=== PATIENT | female | born 1985 | race Caucasian/White ===

== ENCOUNTER 2018-01-07 18:04 | Observation (INO) ==
[2018-01-07 19:07] LABS: Bilirubin,Urine Negative (Negative); Blood,Urine Trace-intact (Negative); Clarity,Urine Clear (Clear); Color,Urine Yellow (Yellow); Glucose,Urine (UA) Normal (Normal); Ketones,Urine Negative (Negative); Leukocyte Esterase,Urine Negative (Negative); Nitrite,Urine Negative (Negative); PH,Urine 5.5 pH Units (5.0-8.0); Protein,Urine Negative (Neg-Trace); Specific Gravity,Urine 1.015 (1.010-1.025); Urobilinogen,Urine Normal (Normal)
[2018-01-07 19:14] LABS: Bacteria,Urine Few per hpf (None-Few); RBC,Urine 0-3 per hpf (0-3); Squamous Epithelial Cell,Urine Few per lpf (None-Few); WBC,Urine 0-3 per hpf (0-3)
[2018-01-07 19:30] LABS: Basophils % 0.4 %; Eosinophils # 0.2 K/mcL (0.0-0.6); Eosinophils % 2.1 %; Hematocrit 36.4 % (35.3-44.9); Hemoglobin 12.4 g/dL (11.5-15.4); Immature Granulocytes % 0.8 % (0-4); Lymphocytes # 2.3 K/mcL (0.6-4.6); Lymphocytes % 30.8 %; Mean Corpuscular HGB Conc 34.1 g/dL (31.6-35.5); Mean Corpuscular Hemoglobin 32.3 pg (28.0-33.3); Mean Corpuscular Volume 94.8 fL (83.0-100.0); Mean Platelet Volume 9.6 fL (9.4-12.4); Monocytes % 12.5 %; Neutrophils # 4.1 K/mcL (1.6-8.9); Platelet Count 306 K/mcL (140-400); Red Blood Count 3.84 M/mcL (3.82-4.97); Red Cell Distribution Width 13.4 % (11.5-14.5); Segmented Neutrophils % 53.4 %
[2018-01-07 19:37] LABS: Prothrombin Time 11.5 Seconds (9.4-12.1)
[2018-01-07 19:40] LABS: Activated Partial Thrombo Time 38.3 Seconds (26.0-36.0)
[2018-01-07] MEDS ORDERED: Albuterol 2.5 MG/3 ML NEBULIZER IH ONE (19:44)
[2018-01-07 19:45] LABS: Alanine Aminotransferase 27 Units/L (7-52); Albumin 3.9 g/dL (3.5-5.7); Albumin/Globulin Ratio 1.4 (1.1-2.2); Alkaline Phosphatase 47 Units/L (34-104); Aspartate Amino Transferase 22 Units/L (13-39); BUN/Creatinine Ratio 21 (6-26); Bilirubin,Total 0.4 mg/dL (0.3-1.0); Blood Urea Nitrogen 12 mg/dL (6-20); Calcium 9.3 mg/dL (8.6-10.3); Carbon Dioxide 29 mEq/L (23-29); Chloride 102 mEq/L (98-107); Globulin 2.7 g/dL (2.4-3.5); Glucose 98 mg/dL (70-105); Osmolality,Calculated 284 (280-300); Potassium 3.9 mEq/L (3.5-5.1); Sodium 137 mEq/L (136-145); Total Protein 6.6 g/dL (6.4-8.9); eGFR For Non-African Americans > 60 (> 60)
[2018-01-07 19:54] LABS: Troponin I < 0.03 ng/mL (< 0.04)
--- NOTE | 2018-01-07 20:40 | Emergency Department Note ---
Disposition Clinical Impression: Abdominal distension Syncope Qualifiers: Encounter type: initial encounter Disposition: Admitted As Inpatient Condition: Good Referrals: NONE,PCP [Primary Care Provider] - Time of Disposition: 20:00 Syncope HPI - General Chief Complaint: ED General Medical Stated Complaint: possible syncope, weight gain, dizziness Source: patient Mode of arrival: ambulatory Limitations: no limitations Nursing Notes Reviewed: Yes Vital Signs Reviewed: Yes - History of Present Illness HPI Narrative: Patient is a pleasant 32 yo F with past medical history significant for Alcohol abuse, Hep C, 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 She states she felt some palpitations. She wasa told that she has cardiography due to log standing alcoholism. She also c/o abd distension and LE edema. Patient denies any fever, chills or night sweats. Pt also denies any eye pain or visual disturbances. There is no sore throat, nasal drainages or facial congestion. There is no chest pain. Pt also denies any shortness of breath, cough or chest congestion. There is no abdominal pain, nausea, vomiting or diarrhea. There is no urgency, frequency or dysuria. There is no muskulo-skeletal pain, arthralgia or back pain. Patient also denies any rash, edema or pruritus. There is no neurological manifestations, no headache, no vertigo or weakness. The patient also denies any anxiety, depression, hallucinations and has no homicidal or suicidal ideations. There is no polyuria, polydipsia or recent weight change. There is no easy bruising or bleeding. Review of other systems is otherwise negative except above. 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(s) Prodromal Symptoms: none Witnessed: no Context: standing up Injuries Sustained Associated with Event: none - Related Data Home Medications Medication Instructions Recorded Confirmed Gabapentin [Neurontin] 600 mg PO TID 07/04/17 12/05/17 Stool Softener 08/26/17 Zyprexa 7.5 mg PO BID 12/05/17 01/07/18 Methadone HCl [Diskets] 40 mg PO 01/07/18 clonazePAM [Klonopin] 1.5 mg PO DAILY 01/07/18 01/07/18 Allergies Allergy/AdvReac Type Severity Reaction Status Date / Time Amoxicillin [From Amoxil] Allergy Rash Verified 12/05/17 22:53 haloperidol [From Haldol] Allergy Rash Verified 12/05/17 22:53 Penicillins [PCN] Allergy Rash Verified 12/05/17 22:53 Prazosin Allergy Rash Verified 12/05/17 22:53 All systems ED: reviewed and negative except as stated. Review of Systems: As Per HPI Constitutional: Denies: fever, chills, weakness, weight change Eyes: Denies: eye pain, eye discharge, vision change ENT ED: Denies: ear pain, throat pain, dental pain, hearing loss, epistaxis, congestion, dysphagia Cardiovascular: Reports: palpitations, edema. Denies: chest pain, dyspnea on exertion, syncope Respiratory: Reports: dyspnea. Denies: cough, wheezes, hemoptysis, stridor Gastrointestinal: Denies: abdominal pain, nausea, vomiting, diarrhea, constipation, hematemesis, melena, hematochezia Genitourinary: Denies: dysuria, frequency, hematuria, discharge Musculoskeletal: Denies: back pain, neck pain, arthralgia, myalgia Integumentary: Denies: rash, abrasion, lesions Neurological: Reports: weakness, other (syncope). 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 history: Reports: endometriosis, other - Social History Smoking Status: Current every day smoker Smokeless Tobacco Status: No Alcohol use: Reports: occasionally Drug use: Reports: cocaine, opiates, marijuana, methamphetamine, IV Drug Use, prescription drug abuse, other Physical Exam - General Limitations: no limitations General appearance: alert - Head Head exam: atraumatic, normocephalic, normal inspection - Eye Eye exam: Present: normal appearance, PERRL, EOMI - Expanded Eye Exam Pupils: Left: reactive - ENT ENT exam: normal exam, normal oropharynx, mucous membranes moist - Expanded ENT Exam External ear exam: Present: normal external inspection Mouth exam: Present: normal external inspection Teeth exam: Present: normal inspection Throat exam: Present: normal inspection - Neck Neck exam: Present: normal inspection, full ROM, trachea midline - Chest Chest inspection: Present: normal inspection, symmetric chest wall rise - Respiratory Respiratory exam: Present: normal lung sounds bilaterally - Cardiovascular Cardiovascular exam: Present: regular rate, normal rhythm, normal heart sounds - Abdominal Exam Abdominal exam: Present: soft, Non-Tender, distention. Absent: tenderness, guarding, rebound, rigidity - Extremities Exam Extremities exam: Present: normal inspection, full ROM. Absent: tenderness, pedal edema - Expanded Upper Extremity Exam Shoulder exam: Present: normal inspection, full ROM Arm exam: Present: normal inspection, full ROM Elbow exam: Present: normal inspection, full ROM Forearm/Wrist exam: Present: normal inspection, full ROM Hand exam: Present: normal inspection, full ROM Vascular exam: Normal: capillary refill, radial pulse - Expanded Lower Extremity Exam Hip/Pelvis exam: Present: normal inspection, full ROM Upper leg exam: Present: normal inspection, full ROM Knee exam: Present: normal inspection, full ROM Lower leg exam: Present: normal inspection, full ROM, swelling Ankle exam: Present: normal inspection, full ROM Foot/toe exam: Present: normal inspection, full ROM Neurovascular/Tendon exam: Absent: motor deficit, sensory deficit, tendon deficit - Back Exam Back exam: Present: normal inspection, full ROM. Absent: tenderness - Neurological Exam Neurological exam: Present: alert, oriented X3 - Expanded Neurological Exam Patient oriented to: Present: person, place, time Coma Scale Eye Opening: Spontaneous Coma Scale Motor Response: Obeys Commands Coma Scale Verbal Response: Oriented Coma Scale Total: 15 - Psychiatric Psychiatric exam: Present: normal affect, normal mood - Skin Skin exam: Present: warm, dry, intact, normal color Course Vital Signs Temperature 98.4 F 01/07/18 18:10 Pulse Rate 79 01/07/18 18:10 Respiratory Rate 18 01/07/18 18:10 Blood Pressure 142/100 01/07/18 18:10 O2 Sat by Pulse Oximetry 79 01/07/18 18:10 Temperature 98.4 F 01/07/18 18:10 Pulse Rate 59 01/07/18 20:31 Respiratory Rate 18 01/07/18 20:31 Blood Pressure 143/74 01/07/18 20:31 O2 Sat by Pulse Oximetry 93 01/07/18 20:31 Oxygen Delivery Oxygen Delivery Room Air Syncope - Differential Diagnosis Likely: syncope due to orthostatic hypotension, complete atrioventricular block , pulmonary embolism - Medical Records Medical records reviewed: Yes I reviewed the patient's medical records. - Lab Data Lab results reviewed: Yes I reviewed the patient's lab results. Result diagrams: 01/07/18 19:20 01/07/18 19:20 Lab Results 01/07/18 01/07/18 01/07/18 Range/Units 18:55 18:55 19:20 WBC 7.6 (4.3-11.1) K/mcL RBC 3.84 (3.82-4.97) M/mcL Hgb 12.4 (11.5-15.4) g/dL Hct 36.4 (35.3-44.9) % MCV 94.8 (83.0-100.0) fL MCH 32.3 (28.0-33.3) pg MCHC 34.1 (31.6-35.5) g/dL RDW 13.4 (11.5-14.5) % Plt Count 306 (140-400) K/mcL MPV 9.6 (9.4-12.4) fL Immature Gran % 0.8 (0-4) % Seg Neutrophils % 53.4 % Lymphocytes % 30.8 % Monocytes % 12.5 % Eosinophils % 2.1 % Basophils % 0.4 % Neutrophils # 4.1 (1.6-8.9) K/mcL Lymphocytes # 2.3 (0.6-4.6) K/mcL Monocytes # 1.0 (0.0-1.3) K/mcL Eosinophils # 0.2 (0.0-0.6) K/mcL Basophils # 0.0 (0.0-0.2) K/mcL PT (9.4-12.1) Seconds INR APTT (26.0-36.0) Seconds Sodium (136-145) mEq/L Potassium (3.5-5.1) mEq/L Chloride (98-107) mEq/L Carbon Dioxide (23-29) mEq/L BUN (6-20) mg/dL Creatinine (0.60-1.20) mg/dL Est GFR ( Amer) (> 60) Est GFR (Non-Af Amer) (> 60) BUN/Creatinine Ratio (6-26) Glucose (70-105) mg/dL Calculated Osmolality (280-300) Calcium (8.6-10.3) mg/dL Total Bilirubin (0.3-1.0) mg/dL AST (13-39) Units/L ALT (7-52) Units/L Alkaline Phosphatase (34-104) Units/L Troponin I (< 0.04) ng/mL Serum Total Protein (6.4-8.9) g/dL Albumin (3.5-5.7) g/dL Globulin (2.4-3.5) g/dL Albumin/Globulin Ratio (1.1-2.2) Urine Color Yellow (Yellow) Urine Clarity Clear (Clear) Urine pH 5.5 (5.0-8.0) pH Units Ur Specific [place] 1.015 (1.010-1.025) Urine Protein Negative (Neg-Trace) mg/dL Urine Glucose (UA) Normal (Normal) mg/dL Urine Ketones Negative (Negative) mg/dL Urine Blood Trace-intact H (Negative) Urine Nitrite Negative (Negative) Urine Bilirubin Negative (Negative) Urine Urobilinogen Normal (Normal) mg/dL Ur Leukocyte Esterase Negative (Negative) Urine Microscopic RBC 0-3 (0-3) per hpf Urine Microscopic WBC 0-3 (0-3) per hpf Ur Squamous Epith Cells Few (None-Few) per lpf Urine Bacteria Few (None-Few) per hpf Urine Test Negative (Negative) 01/07/18 01/07/18 Range/Units 19:20 19:20 WBC (4.3-11.1) K/mcL RBC (3.82-4.97) M/mcL Hgb (11.5-15.4) g/dL Hct (35.3-44.9) % MCV (83.0-100.0) fL MCH (28.0-33.3) pg MCHC (31.6-35.5) g/dL RDW (11.5-14.5) % Plt Count (140-400) K/mcL MPV (9.4-12.4) fL Immature Gran % (0-4) % Seg Neutrophils % % Lymphocytes % % Monocytes % % Eosinophils % % Basophils % % Neutrophils # (1.6-8.9) K/mcL Lymphocytes # (0.6-4.6) K/mcL Monocytes # (0.0-1.3) K/mcL Eosinophils # (0.0-0.6) K/mcL Basophils # (0.0-0.2) K/mcL PT 11.5 (9.4-12.1) Seconds INR 1.0 APTT 38.3 H (26.0-36.0) Seconds Sodium 137 (136-145) mEq/L Potassium 3.9 (3.5-5.1) mEq/L Chloride 102 (98-107) mEq/L Carbon Dioxide 29 (23-29) mEq/L BUN 12 (6-20) mg/dL Creatinine 0.57 L (0.60-1.20) mg/dL Est GFR ( Amer) > 60 (> 60) Est GFR (Non-Af Amer) > 60 (> 60) BUN/Creatinine Ratio 21 (6-26) Glucose 98 (70-105) mg/dL Calculated Osmolality 284 (280-300) Calcium 9.3 (8.6-10.3) mg/dL Total Bilirubin 0.4 (0.3-1.0) mg/dL AST 22 (13-39) Units/L ALT 27 (7-52) Units/L Alkaline Phosphatase 47 (34-104) Units/L Troponin I < 0.03 (< 0.04) ng/mL Serum Total Protein 6.6 (6.4-8.9) g/dL Albumin 3.9 (3.5-5.7) g/dL Globulin 2.7 (2.4-3.5) g/dL Albumin/Globulin Ratio 1.4 (1.1-2.2) Urine Color (Yellow) Urine Clarity (Clear) Urine pH (5.0-8.0) pH Units Ur Specific [place] (1.010-1.025) Urine Protein (Neg-Trace) mg/dL Urine Glucose (UA) (Normal) mg/dL Urine Ketones (Negative) mg/dL Urine Blood (Negative) Urine Nitrite (Negative) Urine Bilirubin (Negative) Urine Urobilinogen (Normal) mg/dL Ur Leukocyte Esterase (Negative) Urine Microscopic RBC (0-3) per hpf Urine Microscopic WBC (0-3) per hpf Ur Squamous Epith Cells (None-Few) per lpf Urine Bacteria (None-Few) per hpf Urine Test (Negative) - Radiology Data Radiology results reviewed: Yes I reviewed the patient's radiology results. - EKG Data EKG attestation: Yes I reviewed and interpreted this EKG.
[2018-01-07] MEDS ORDERED: Naloxone 0.4 MG/ML INJ IVP PRN (21:12)
[2018-01-07] MEDS: Gabapentin 300 MG CAPSULE PO SCH (23:00)
[2018-01-07] MEDS: Ibuprofen 600 MG TABLET PO PRN (23:00)
[2018-01-07] MEDS: Nicotine 21 MG PATCH.TD24 TD SCH (23:01)
[2018-01-08 02:48] LABS: Chol/HDL Ratio 3.8 (0-4.9); Magnesium 1.6 mg/dL (1.6-2.6); Phosphorous 5.3 mg/dL (2.7-4.5)
[2018-01-08] MEDS ORDERED: NON-FORMULARY MEDICATION 1 EACH EACH (Gabapentin [Neurontin] 600 MG) PO SCH (09:00)
[2018-01-08] MEDS ORDERED: OLANZapine 5 MG TAB.RAPDIS PO SCH ×2 (09:00→21:00)
[2018-01-08] MEDS: Gabapentin 300 MG CAPSULE PO SCH ×3 (09:13→22:16)
[2018-01-08] MEDS: Nicotine 21 MG PATCH.TD24 TD SCH (09:14)
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
[2018-01-08] MEDS: Ibuprofen 600 MG TABLET PO PRN ×2 (16:18→22:16)
[2018-01-08] MEDS: *HR* Methadone 10 MG TABLET PO SCH (18:51)
[2018-01-08 19:10] LABS: Amphetamine Screen,Urine Negative ng/mL (Cutoff=1000); Barbiturate Screen,Urine Negative ng/mL (Cutoff=200); Benzodiazepines Screen,Urine Negative ng/mL (Cutoff=200); Cannabinoid Screen,Urine Positive ng/mL (Cutoff = 50); Cocaine Screen,Urine Negative ng/mL (Cutoff= 300); Opiate Screen,Urine Negative ng/mL (Cutoff=300); Phencyclidine Screen,Urine Negative ng/mL (Cutoff=25)
[2018-01-09 06:57] LABS: Basophils % 0.8 %; Eosinophils # 0.2 K/mcL (0.0-0.6); Hematocrit 34.7 % (35.3-44.9); Hemoglobin 11.9 g/dL (11.5-15.4); Immature Granulocytes % 1.2 % (0-4); Lymphocytes # 2.4 K/mcL (0.6-4.6); Lymphocytes % 48.4 %; Mean Corpuscular HGB Conc 34.3 g/dL (31.6-35.5); Mean Corpuscular Hemoglobin 32.4 pg (28.0-33.3); Mean Corpuscular Volume 94.6 fL (83.0-100.0); Mean Platelet Volume 9.8 fL (9.4-12.4); Monocytes # 0.8 K/mcL (0.0-1.3); Monocytes % 16.1 %; Neutrophils # 1.5 K/mcL (1.6-8.9); Platelet Count 293 K/mcL (140-400); Red Blood Count 3.67 M/mcL (3.82-4.97); Red Cell Distribution Width 13.2 % (11.5-14.5); Segmented Neutrophils % 30.5 %
[2018-01-09] MEDS: *HR* Methadone 10 MG TABLET PO SCH (08:49)
[2018-01-09] MEDS: Gabapentin 300 MG CAPSULE PO SCH (08:49)
[2018-01-09] MEDS: Nicotine 21 MG PATCH.TD24 TD SCH (08:49)
--- NOTE | 2018-01-09 09:56 | Discharge Summary ---
Date of Encounter: 01/09/18 Time of Encounter: 09:45 - Discharge Diagnosis (1) Syncope Priority: Primary Status: Acute Qualifiers: Syncope type: unspecified Qualified Code(s): R55 - Syncope and collapse (2) Weight gain Priority: Secondary Status: Acute Hospital course: Ms. Alan is a 32 year old female who was brought to emergency room after having a syncopal episode while standing at a picnic. She had no premonition of syncope and did not attempt to catch her self when she fell. There was no injury sustained. She reports feeling "groggy" upon awakening. She denies loss of bowel or bladder control. She was brought to emergency room and evaluated and admitted to [facility] for ongoing care needs. Initial orders were written by the emergency room physician. I saw her on January 08 and performed a history and physical. She was maintained on telemetry. No significant abnormalities were seen. She had no further syncopal or near syncopal episodes. The etiology of her syncope was not determined with certainty. Urine drug screen returned positive for THC. Chest, abdominal, and pelvic CT was done to further evaluate reported weight gain. No acute abnormalities were seen. She felt improved when I saw her on January 09 and was stable for discharge home. She will follow with her PCP within 1 week. - Time Spent with Patient Total time spent providing and/or coordinating discharge services: - Discharge Medications Home Medications: Gabapentin [Neurontin] 600 mg PO TID 07/04/17 [History] Stool Softener 08/26/17 [History] Zyprexa 7.5 mg PO BID 12/05/17 [History] Methadone HCl [Diskets] 42 mg PO DAILY 01/07/18 [History] clonazePAM [Klonopin] 1.5 mg PO DAILY 01/07/18 [History] Allergies/Adverse Reactions: 3 Allergy/AdvReac Type Severity Reaction Status Date / Time Amoxicillin [From Amoxil] Allergy Rash Verified 12/05/17 22:53 haloperidol [From Haldol] Allergy Rash Verified 12/05/17 22:53 Penicillins [PCN] Allergy Rash Verified 12/05/17 22:53 Prazosin Allergy Rash Verified 12/05/17 22:53 Date of admission: 01/07/18 21:17 Primary care physician: PCP NONE Consults: 01/07/18 22:23 Consult to Community Development Planner [CONS] Routine Reason for SW Consult: Pt does not feel safe at home; Pt lives at home with boyfriend and 18 year old daughter - Constitutional Vitals: Temp Pulse Resp BP Pulse Ox 98.5 F 55 12 94/50 98 01/09/18 06:38 01/09/18 06:38 01/09/18 06:38 01/09/18 06:38 01/09/18 06:38 - Patient Status Disposition: Home, Self-Care Condition: Good - Discharge Instructions Follow Up With: NONE,PCP [Primary Care Provider] - 1 week - Diet and Activity Activity: resume usual activities as tolerated Diet: advance to your usual diet
[2018-01-09 11:08] VITALS: BP 103/66
--- NOTE | 2018-01-09 17:38 | Electrocardiograph Report ---
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
== END 2018-01-09 12:21 | disposition home or self-care (01) ==
LOC: INPPIK 18:04 → EMEROOPIK 18:04 → INPPIK 21:29
PROVIDERS: ADMIT Internal Medicine; ATTEND Internal Medicine